=== PATIENT | female | born 1945 | race Caucasian/White ===

== ENCOUNTER 2018-04-22 14:49 | Emergency (ER) | payer MEDICARE ==
[~2018-04-22] VITALS: Ht 578.2 cm; Wt 79.5 kg
[~2018-04-22 14:49] MED LIST: DIPH25CA83 PO
[2018-04-22 15:34] LABS: INR 0.9 INR; PARTIAL THROMBOPLASTIN TIME 25 SECONDS (22-32); PROTHROMBIN TIME 9.7 SECONDS (9.0-12.0)
[2018-04-22 15:42] LABS: ALANINE AMINOTRANSFERASE 23 U/L (12-78); ALBUMIN 3.3 G/DL (3.4-5.0); ALBUMIN/GLOBULIN RATIO 1.1 (1.1-1.5); ALKALINE PHOSPHATASE 162 IU/L (46-116); ANION GAP 9 (8-16); ASPARTATE AMINO TRANSFERASE 25 U/L (10-37); BILIRUBIN,TOTAL 0.5 MG/DL (0.1-1.0); BLOOD UREA NITROGEN 16 MG/DL (7-18); BUN/CREATININE RATIO 15.4 (6.6-38.0); CALCIUM 8.9 MG/DL (8.5-10.1); CHLORIDE 106 MMOL/L (99-107); CREATININE 1.04 MG/DL (0.40-0.90); GLUCOSE 114 MG/DL (70-104); POTASSIUM 3.9 MMOL/L (3.5-5.1); SODIUM 140 MMOL/L (135-145); TOTAL CARBON DIOXIDE 24.7 MMOL/L (24-32); TOTAL PROTEIN 6.3 G/DL (6.4-8.2); eGFR 52 ML/MIN
[2018-04-22 15:43] LABS: BASOPHILS % (AUTO) 0.2 % (0-1); EOSINOPHILS # (AUTO) 1.1 X10'3 (0-0.9); EOSINOPHILS % (AUTO) 11.5 % (0-6); HEMATOCRIT 42.1 % (35.0-45.0); HEMOGLOBIN 14.4 g/dl (12.0-16.0); LYMPHOCYTES # (AUTO) 0.8 X10'3 (1.1-4.8); LYMPHOCYTES % (AUTO) 8.6 % (21-51); MEAN CORPUSCULAR HEMOGLOBIN 29.8 PG (27.0-31.0); MEAN CORPUSCULAR HGB CONC 34.1 % (33.0-36.5); MEAN CORPUSCULAR VOLUME 87.4 FL (78-98); MEAN PLATELET VOLUME 9.1 FL (7.4-10.4); MONOCYTES # (AUTO) 0.4 X10'3 (0-0.9); MONOCYTES % (AUTO) 4.5 % (2-12); NEUTROPHILS # (AUTO) 7.2 X10'3 (1.8-7.7); NEUTROPHILS % (AUTO) 75.2 % (42-75); PLATELET COUNT 197 X10'3 (140-440); RED BLOOD COUNT 4.82 X10'6 (4.20-5.60); RED CELL DISTRIBUTION WIDTH 14.5 % (11.5-14.5); WHITE BLOOD COUNT 9.6 X10'3 (4.5-11.0)
[2018-04-22] MEDS ORDERED: normal saline 1000ML IV soln IVB ONE (16:00)
[2018-04-22] MEDS ORDERED: ketorolac trometh. 30mg/ml inj. IV ONE (16:00)
[2018-04-22 17:08] VITALS: BP 149/76
== END 2018-04-22 17:10 | disposition home or self-care (01) ==
LOC: ER 14:50
DX: G44.209 Tension-type headache, unspecified, not intractable (principal); E86.0 Dehydration; I49.9 Cardiac arrhythmia, unspecified; I10 Essential (primary) hypertension; J45.909 Unspecified asthma, uncomplicated; Z98.890 Other specified postprocedural states; Z98.61 Coronary angioplasty status; Z88.8 Allergy status to other drugs, medicaments and biological substances; Z88.5 Allergy status to narcotic agent; Z79.899 Other long term (current) drug therapy
CPT/HCPCS: 36415; 71045; 80053; 84484; 85025; 85610; 85730; 93005; 96361; 96374; 99285; J1885; J7030

== ENCOUNTER 2019-01-14 06:11 | Inpatient (IN) | payer MEDICARE | END 2019-01-16 11:15 | disposition home or self-care (01) | LOC: PAS IN 06:11 → ORTHO 4S 13:38 | PROC: 0SRC0J9 Replacement of Right Knee Joint with Synthetic Substitute, Cemented, Open Approach (ICD-10-PCS; principal; 2019-01-14 09:12) | DX: M17.11 Unilateral primary osteoarthritis, right knee (principal); I10 Essential (primary) hypertension ==

== ENCOUNTER 2020-08-13 01:25 | Emergency (ER) | payer MEDICARE ==
[~2020-08-13] VITALS: Ht 165.1 cm; Wt 80.0 kg
[~2020-08-13 01:25] MED LIST changes: +ASPI-1 PO; +ATOR10TA87 PO; +CA C1TAB93 PO; +CALC60CR5 TP; +CLOB15CR4 TOP; -DIPH25CA83 PO; +KEN0.1O TP; +LEVA15HF4 INH; +MAGN400C PO; +MONT10TA21 PO; +VIT1CAPS46
[2020-08-13] MEDS ORDERED: aspirin 81mg tab.chew PO ONE (01:35)
[2020-08-13] MEDS ORDERED: ondansetron/PF 4mg/2ml inj IV ONE (01:50)
[2020-08-13] MEDS: nitroGLYCERIN 0.4mg SUBLingual tab SL PRN ×3 (01:50→02:23)
--- NOTE | 2020-08-13 02:02 | NUR ---
Pt. had emesis x1. VO 4mg IV morphine now.
[2020-08-13 02:17] LABS: BASOPHILS # (AUTO) 0.1 X10'3 (0-0.2); BASOPHILS % (AUTO) 0.7 % (0-1); EOSINOPHILS # (AUTO) 0.7 X10'3 (0-0.9); EOSINOPHILS % (AUTO) 6.6 % (0-6); HEMATOCRIT 42.5 % (35.0-45.0); LYMPHOCYTES % (AUTO) 17.7 % (21-51); MEAN CORPUSCULAR HEMOGLOBIN 29.1 PG (27.0-31.0); MEAN CORPUSCULAR HGB CONC 32.9 g/dL (33.0-36.5); MEAN CORPUSCULAR VOLUME 88.4 FL (78-98); MEAN PLATELET VOLUME 8.7 FL (7.4-10.4); MONOCYTES # (AUTO) 0.9 X10'3 (0-0.9); MONOCYTES % (AUTO) 8.2 % (2-12); NEUTROPHILS # (AUTO) 7.4 X10'3 (1.8-7.7); NEUTROPHILS % (AUTO) 66.8 % (42-75); PLATELET COUNT 199 X10'3 (140-440); RED BLOOD COUNT 4.81 X10'6 (4.20-5.60)
[2020-08-13 03:00] LABS: ALANINE AMINOTRANSFERASE 40 U/L (12-78); ALBUMIN 3.4 G/DL (3.4-5.0); ALBUMIN/GLOBULIN RATIO 1.2 (1.1-1.5); ALKALINE PHOSPHATASE 142 IU/L (46-116); ANION GAP 4 (8-16); ASPARTATE AMINO TRANSFERASE 26 U/L (10-37); BILIRUBIN,TOTAL 0.5 MG/DL (0.1-1.0); BLOOD UREA NITROGEN 17 MG/DL (7-18); CALCIUM 8.5 MG/DL (8.5-10.1); CHLORIDE 106 MMOL/L (99-107); CREATININE 1.21 MG/DL (0.40-0.90); GLUCOSE 133 MG/DL (70-104); POTASSIUM 4.1 MMOL/L (3.5-5.1); SODIUM 139 MMOL/L (135-145); TOTAL CARBON DIOXIDE 29.2 MMOL/L (24-32); TOTAL PROTEIN 6.2 G/DL (6.4-8.2); eGFR 44 ML/MIN
[2020-08-13 03:06] LABS: LIPASE 183 U/L (73-393)
[2020-08-13 04:39] VITALS: BP 140/83
== END 2020-08-13 04:58 | disposition home or self-care (01) ==
LOC: ER 01:25
DX: R07.89 Other chest pain (principal); R06.02 Shortness of breath; E78.00 Pure hypercholesterolemia, unspecified; I10 Essential (primary) hypertension; J45.909 Unspecified asthma, uncomplicated; Z95.0 Presence of cardiac pacemaker; Z98.890 Other specified postprocedural states; Z88.2 Allergy status to sulfonamides; Z88.5 Allergy status to narcotic agent; Z88.8 Allergy status to other drugs, medicaments and biological substances; Z79.82 Long term (current) use of aspirin; Z79.899 Other long term (current) drug therapy
CPT/HCPCS: 36415; 71045; 80053; 83690; 83880; 84484; 85025; 93005; 96374; 99285; J2405

== ENCOUNTER 2020-08-15 06:40 | Inpatient (IN) | payer MEDICARE ==
[~2020-08-15] VITALS: Ht 165.1 cm; Wt 82.1 kg
[2020-08-15] MEDS ORDERED: aspirin 81mg tab.chew PO ONE (07:00)
[2020-08-15 07:37] LABS: BASOPHILS # (AUTO) 0.1 X10'3 (0-0.2); BASOPHILS % (AUTO) 1.3 % (0-1); EOSINOPHILS # (AUTO) 0.4 X10'3 (0-0.9); EOSINOPHILS % (AUTO) 5.6 % (0-6); HEMATOCRIT 46.2 % (35.0-45.0); HEMOGLOBIN 15.5 g/dl (12.0-16.0); LYMPHOCYTES # (AUTO) 1.9 X10'3 (1.1-4.8); LYMPHOCYTES % (AUTO) 26.6 % (21-51); MEAN CORPUSCULAR HEMOGLOBIN 29.8 PG (27.0-31.0); MEAN CORPUSCULAR HGB CONC 33.6 g/dL (33.0-36.5); MEAN CORPUSCULAR VOLUME 88.6 FL (78-98); MONOCYTES # (AUTO) 0.9 X10'3 (0-0.9); MONOCYTES % (AUTO) 12.5 % (2-12); NEUTROPHILS # (AUTO) 3.9 X10'3 (1.8-7.7); PLATELET COUNT 198 X10'3 (140-440); RED BLOOD COUNT 5.21 X10'6 (4.20-5.60); RED CELL DISTRIBUTION WIDTH 14.2 % (11.5-14.5); WHITE BLOOD COUNT 7.1 X10'3 (4.5-11.0)
[2020-08-15 07:52] LABS: D-DIMER 0.54 MG/L FEU (0-0.50)
[2020-08-15 08:07] LABS: ALBUMIN 3.3 G/DL (3.4-5.0); ANION GAP 6 (8-16); BLOOD UREA NITROGEN 11 MG/DL (7-18); BUN/CREATININE RATIO 9.8 (6.6-38.0); CALCIUM 8.9 MG/DL (8.5-10.1); CHLORIDE 102 MMOL/L (99-107); CREATININE 1.12 MG/DL (0.40-0.90); GLUCOSE 119 MG/DL (70-104); MAGNESIUM 2.2 MG/DL (1.5-2.4); SODIUM 136 MMOL/L (135-145); TOTAL CARBON DIOXIDE 27.6 MMOL/L (24-32); eGFR 48 ML/MIN
[2020-08-15] MEDS ORDERED: acetaminophen 325mg tablet PO PRN ×2 (08:35)
[2020-08-15] MEDS ORDERED: ondansetron/PF 4mg/2ml inj IV PRN (08:35)
[2020-08-15] MEDS ORDERED: magnesium hydroxide 30ml (MOM) UD suspension PO PRN (08:35)
[2020-08-15] MEDS ORDERED: morphine 2 MG/ML inj. syringe IV PRN ×2 (08:35)
[2020-08-15] MEDS ORDERED: mag hydrox/Alum hydrox/simeth 30ml oral suspension PO PRN (08:35)
--- NOTE | 2020-08-15 10:09 | NUR ---
Patient checked and is resting comfortably, denies pain or SOB. Patient reports a "fluttering in chest".
[2020-08-15] MEDS ORDERED: albuterol 2.5 MG/3 ML nebule NEB PRN (13:00)
[2020-08-15] MEDS ORDERED: enoxaparin 100mg/ml syringe SUBCUT ONE (14:45)
--- NOTE | 2020-08-15 14:52 | NUR ---
Patient is resting comfortably in bed with no requests at this time.
[2020-08-15] MEDS: diltiazem 30mg tablet PO SCH ×2 (15:27→20:03)
--- NOTE | 2020-08-15 16:00 | NUR ---
Report received from Douglas RN in ER. Pt brought to room 315. Pt was is ambulatory and walked to bed from ER [facility]. She is A&O x4. Assessment completed, lungs are CTA, BS x4 abd soft to to touch non tender. HR 85 in A Fib. No edema noted. Pt denies any pain. This nurse agrees with assessment by DIRECTOR OF CRITICAL CARE as well. Pt denies any needs at this time.
[2020-08-15 18:00] VITALS: BP 131/66
--- NOTE | 2020-08-15 18:00 | NUR ---
Patient in room MED 315. I have received report from ANDREW MILLER and had the opportunity to ask questions and assume patient care.
--- NOTE | 2020-08-15 18:29 | NUR ---
Problems reprioritized. Patient report given, questions answered & plan of care reviewed with Ana MILLER. Addendum: 08/15/20 at 1830 by Madai Epstein RN Report given to Payal MILLER
[2020-08-15] MEDS ORDERED: montelukast 10mg tablet PO SCH (21:00)
[2020-08-15] MEDS ORDERED: atorvastatin 10mg tablet PO SCH (21:00)
[2020-08-15] MEDS ORDERED: magnesium oxide 400mg tablet PO SCH (21:00)
[2020-08-15 22:00] VITALS: BP 140/85
[2020-08-16 02:00] VITALS: BP 134/74
[2020-08-16] MEDS: diltiazem 30mg tablet PO SCH ×2 (02:11→09:38)
[2020-08-16 04:58] LABS: BASOPHILS # (AUTO) 0.1 X10'3 (0-0.2); BASOPHILS % (AUTO) 1.3 % (0-1); EOSINOPHILS # (AUTO) 0.5 X10'3 (0-0.9); EOSINOPHILS % (AUTO) 9.1 % (0-6); HEMATOCRIT 44.7 % (35.0-45.0); HEMOGLOBIN 14.9 g/dl (12.0-16.0); LYMPHOCYTES # (AUTO) 1.9 X10'3 (1.1-4.8); LYMPHOCYTES % (AUTO) 32.5 % (21-51); MEAN CORPUSCULAR HEMOGLOBIN 29.5 PG (27.0-31.0); MEAN CORPUSCULAR HGB CONC 33.3 g/dL (33.0-36.5); MEAN CORPUSCULAR VOLUME 88.5 FL (78-98); MEAN PLATELET VOLUME 8.7 FL (7.4-10.4); MONOCYTES # (AUTO) 0.6 X10'3 (0-0.9); MONOCYTES % (AUTO) 10.7 % (2-12); NEUTROPHILS # (AUTO) 2.8 X10'3 (1.8-7.7); NEUTROPHILS % (AUTO) 46.4 % (42-75); PLATELET COUNT 271 X10'3 (140-440); RED BLOOD COUNT 5.05 X10'6 (4.20-5.60); RED CELL DISTRIBUTION WIDTH 14.1 % (11.5-14.5); WHITE BLOOD COUNT 5.9 X10'3 (4.5-11.0)
[2020-08-16 05:18] LABS: ANION GAP 7 (8-16); BLOOD UREA NITROGEN 20 MG/DL (7-18); BUN/CREATININE RATIO 14.8 (6.6-38.0); CHLORIDE 104 MMOL/L (99-107); CREATININE 1.35 MG/DL (0.40-0.90); GLUCOSE 119 MG/DL (70-104); POTASSIUM 4.3 MMOL/L (3.5-5.1); SODIUM 141 MMOL/L (135-145); eGFR 38 ML/MIN
[2020-08-16 06:00] VITALS: BP 127/71
--- NOTE | 2020-08-16 06:08 | NUR ---
Problems reprioritized. Patient report given, questions answered & plan of care reviewed with ANDREW MILLER.
[2020-08-16] MEDS ORDERED: WARF3TAB56 PO (08:49)
[2020-08-16] MEDS ORDERED: DILT120C52 PO (08:49)
[2020-08-16] MEDS ORDERED: FURO-150 PO (08:49)
[2020-08-16 09:50] VITALS: BP 129/66
--- NOTE | 2020-08-16 10:21 | NUR ---
Discharge orders received. IV discontinued and had no s/s complications. PT VS have remained stable. She denies any chest pain or palpitations this morning. Discharge instructions given and pt stated understanding. Medications sent to pharmacy by MD Shikha anne. All belongings accounted for. Pt taken via wheelchair to private vehicle.
== END 2020-08-16 10:21 | disposition home or self-care (01) | DRG 310 ==
LOC: ER 06:40 → ED HOLD 08:35 → MED 3N 15:56
PROVIDERS: ADMIT Internal Medicine; ATTEND Internal Medicine
DX: I48.91 Unspecified atrial fibrillation (principal); E78.5 Hyperlipidemia, unspecified; I49.5 Sick sinus syndrome; E78.00 Pure hypercholesterolemia, unspecified; N18.30 Chronic kidney disease, stage 3 unspecified; Z96.659 Presence of unspecified artificial knee joint; J44.9 Chronic obstructive pulmonary disease, unspecified; Z90.710 Acquired absence of both cervix and uterus; Z95.0 Presence of cardiac pacemaker; Z82.49 Family history of ischemic heart disease and other diseases of the circulatory system; Z91.012 Allergy to eggs; Z88.2 Allergy status to sulfonamides; Z88.8 Allergy status to other drugs, medicaments and biological substances; Z91.018 Allergy to other foods; Z79.899 Other long term (current) drug therapy
CPT/HCPCS: 36415; 71046; 80048; 83735; 83880; 84443; 84484; 85025; 85379; 87081; 93005; 93306; 93308; 94760; 99285; G0378; J1650

== ENCOUNTER 2021-11-03 05:58 | Day surgery (SDC) | payer MEDICARE ==
[2021-11-02 11:30] LABS: BASOPHILS # (AUTO) 0.1 X10'3 (0-0.2); EOSINOPHILS # (AUTO) 0.9 X10'3 (0-0.9); HEMATOCRIT 40.7 % (35.0-45.0); HEMOGLOBIN 13.5 g/dl (12.0-16.0); LYMPHOCYTES # (AUTO) 1.8 X10'3 (1.1-4.8); MEAN CORPUSCULAR HEMOGLOBIN 27.3 PG (27.0-31.0); MEAN CORPUSCULAR HGB CONC 33.3 g/dL (33.0-36.5); MEAN CORPUSCULAR VOLUME 82.2 FL (78-98); MONOCYTES # (AUTO) 0.7 X10'3 (0-0.9); NEUTROPHILS # (AUTO) 4.1 X10'3 (1.8-7.7); PLATELET COUNT 205 X10'3 (140-440); RED BLOOD COUNT 4.95 X10'6 (4.20-5.60); RED CELL DISTRIBUTION WIDTH 17.9 % (11.5-14.5); WHITE BLOOD COUNT 7.5 X10'3 (4.5-11.0)
[2021-11-02 11:45] LABS: ALBUMIN 3.4 G/DL (3.4-5.0); ANION GAP 7 (8-16); APTT 27 SECONDS (22-32); BLOOD UREA NITROGEN 18 MG/DL (7-18); BUN/CREATININE RATIO 17.6 (6.6-38.0); CALCIUM 8.7 MG/DL (8.5-10.1); CHLORIDE 102 MMOL/L (99-107); CREATININE 1.02 MG/DL (0.40-0.90); GLUCOSE 88 MG/DL (70-104); SODIUM 138 MMOL/L (135-145); TOTAL CARBON DIOXIDE 29.3 MMOL/L (24-32); eGFR 53 ML/MIN
[2021-11-03] VITALS (10 sets, daily range): BP systolic 141–158; BP diastolic 62–75
[~2021-11-03] VITALS: Ht 165.1 cm; Wt 80.1 kg
[~2021-11-03 05:58] MED LIST changes: -ASPI-1 PO; -CA C1TAB93 PO; -CALC60CR5 TP; -CLOB15CR4 TOP; +DILT120C52 PO; +FURO-150 PO; -KEN0.1O TP; -VIT1CAPS46; +WARF3TAB56 PO
[2021-11-03] MEDS ORDERED: normal saline 1,000 ML IV SCH (06:15)
[2021-11-03] MEDS ORDERED: LIDOcaine/PRILOcaine 5gm cream TP ONE (06:15)
[2021-11-03] MEDS ORDERED: LORazepam 0.5 MG tablet PO ONE (06:35)
[2021-11-03] MEDS ORDERED: diphenhydrAMINE 25mg capsule PO ONE (06:35)
[2021-11-03] MEDS ORDERED: UBID100C16 PO (07:07)
[2021-11-03] MEDS ORDERED: WARF3TAB56 PO (07:07)
[2021-11-03] MEDS ORDERED: CALC60OI4 TOP (07:07)
[2021-11-03] MEDS ORDERED: CALC-825 PO (07:07)
[2021-11-03] MEDS ORDERED: vitamin d3 PO (07:07)
[2021-11-03] MEDS ORDERED: VIT1CAPS46 PO (07:07)
[2021-11-03] MEDS ORDERED: CLOB15CR4 TOP (07:07)
[2021-11-03] MEDS ORDERED: DILT-35 PO (07:07)
[2021-11-03] MEDS ORDERED: TRIA15CR61 TOP (07:07)
[2021-11-03] MEDS ORDERED: nitroGLYCERIN-Tridil 50MG/D5W 250 ML IV ONE (07:21)
[2021-11-03] MEDS ORDERED: midazolam 1 mg/ML 2ml injection ONE (07:22)
[2021-11-03] MEDS ORDERED: heparin 1,000unit/ml 10ml vial 10 ML ONE (07:22)
[2021-11-03] MEDS ORDERED: verapamil 2.5 mg/ml inj IV ONE (07:22)
[2021-11-03] MEDS ORDERED: fentaNYL/PF 50MCG/1 ML 2ML syringe ONE (07:22)
[2021-11-03] MEDS ORDERED: LIDOcaine 1% (10mg/ml)w/preservative injection 20ml MDV ONE (07:22)
[2021-11-03] MEDS ORDERED: iohexol 350 MG/ML 50ML vial IV ONE (07:23)
[2021-11-03] MEDS ORDERED: iohexol 350MG/ML 100ml bottle IV ONE (07:23)
[2021-11-03] MEDS ORDERED: normal saline 1000ml 1,000 ML IV SCH (09:45)
[2021-11-07 06:37] LABS: ISTAT Hct MIX 43 %PCV (35-48); ISTAT O2 SATURATION MIX VENOUS 69 % (60-80); ISTAT SOURCE BLNK
[2021-11-07 06:38] LABS: ISTAT Hct MIX 42 %PCV (35-48); ISTAT O2 SATURATION MIX VENOUS 92 % (60-80); ISTAT SOURCE BLNK
== END 2021-11-03 14:00 | disposition home or self-care (01) ==
LOC: SSTAY O 05:58
PROVIDERS: ATTEND Internal Medicine Cardiovascular Disease
DX: R06.02 Shortness of breath (principal); R53.83 Other fatigue; I25.119 Atherosclerotic heart disease of native coronary artery with unspecified angina pectoris; I48.0 Paroxysmal atrial fibrillation; I10 Essential (primary) hypertension; J45.909 Unspecified asthma, uncomplicated; M85.80 Other specified disorders of bone density and structure, unspecified site; E78.5 Hyperlipidemia, unspecified; I34.1 Nonrheumatic mitral (valve) prolapse; Z87.440 Personal history of urinary (tract) infections; Z87.01 Personal history of pneumonia (recurrent); Z79.01 Long term (current) use of anticoagulants; Z96.651 Presence of right artificial knee joint; Z98.41 Cataract extraction status, right eye; Z98.42 Cataract extraction status, left eye; Z98.890 Other specified postprocedural states; Z95.0 Presence of cardiac pacemaker; Z88.2 Allergy status to sulfonamides; Z88.1 Allergy status to other antibiotic agents; Z88.0 Allergy status to penicillin; Z88.5 Allergy status to narcotic agent; Z88.8 Allergy status to other drugs, medicaments and biological substances; Z83.6 Family history of other diseases of the respiratory system; Z82.49 Family history of ischemic heart disease and other diseases of the circulatory system
CPT/HCPCS: 36415; 76937; 80048; 82803; 85014; 85025; 85610; 85730; 93005; 93460; 99152; 99153; C1751; C1769; C1894; J1644; J2250; J3010; J3490; J7030; Q0163; Q9967; A4620; A5120; A6258

== ENCOUNTER 2022-09-22 10:44 | Emergency (ER) | payer MEDICARE ==
[~2022-09-22] VITALS: Ht 165.1 cm; Wt 85.0 kg
[~2022-09-22 10:44] MED LIST changes: +CALC-825 PO; +CALC60OI4 TOP; +CLOB15CR4 TOP; +DILT-35 PO; -DILT120C52 PO; -FURO-150 PO; +TRIA15CR61 TOP; +UBID100C16 PO; +VIT1CAPS46 PO; +vitamin d3 PO
[2022-09-22 12:57] LABS: BASOPHILS # (AUTO) 0.1 X10'3 (0-0.2); BASOPHILS % (AUTO) 0.7 % (0-1); EOSINOPHILS # (AUTO) 0.4 X10'3 (0-0.9); EOSINOPHILS % (AUTO) 3.5 % (0-6); HEMATOCRIT 44.8 % (35.0-45.0); LYMPHOCYTES # (AUTO) 1.7 X10'3 (1.1-4.8); LYMPHOCYTES % (AUTO) 16.2 % (21-51); MEAN CORPUSCULAR HEMOGLOBIN 29.1 PG (27.0-31.0); MEAN CORPUSCULAR HGB CONC 33.5 g/dL (33.0-36.5); MEAN PLATELET VOLUME 9.1 FL (7.4-10.4); MONOCYTES # (AUTO) 1.4 X10'3 (0-0.9); MONOCYTES % (AUTO) 12.9 % (2-12); NEUTROPHILS # (AUTO) 7.2 X10'3 (1.8-7.7); NEUTROPHILS % (AUTO) 66.7 % (42-75); PLATELET COUNT 205 X10'3 (140-440); RED BLOOD COUNT 5.15 X10'6 (4.20-5.60); RED CELL DISTRIBUTION WIDTH 15.1 % (11.5-14.5); WHITE BLOOD COUNT 10.8 X10'3 (4.5-11.0)
[2022-09-22 13:00] LABS: ALANINE AMINOTRANSFERASE 27 U/L (12-78); ALBUMIN 3.2 G/DL (3.4-5.0); ALKALINE PHOSPHATASE 132 IU/L (46-116); ANION GAP 10 (8-16); ASPARTATE AMINO TRANSFERASE 18 U/L (10-37); BLOOD UREA NITROGEN 19 MG/DL (7-18); BUN/CREATININE RATIO 18.8 (6.6-38.0); CALCIUM 8.8 MG/DL (8.5-10.1); CHLORIDE 102 MMOL/L (99-107); CREATININE 1.01 MG/DL (0.40-0.90); GLUCOSE 110 MG/DL (70-104); POTASSIUM 3.8 MMOL/L (3.5-5.1); SODIUM 137 MMOL/L (135-145); TOTAL CARBON DIOXIDE 24.8 MMOL/L (24-32); TOTAL PROTEIN 6.5 G/DL (6.4-8.2); eGFR 53 ML/MIN
[2022-09-22 19:59] LABS: D-DIMER < 0.19 MG/L FEU (0-0.50)
--- NOTE | 2022-09-22 21:21 | NUR ---
Ste[employer]er agrees with Venice Koch, CRESENCIO assessment.
[2022-09-22 21:27] VITALS: BP 131/98
== END 2022-09-22 21:30 | disposition home or self-care (01) ==
LOC: ER 10:44
DX: R07.9 Chest pain, unspecified (principal); E78.00 Pure hypercholesterolemia, unspecified; I10 Essential (primary) hypertension; J45.909 Unspecified asthma, uncomplicated; Z00.8 Encounter for other general examination; Z88.8 Allergy status to other drugs, medicaments and biological substances; Z79.1 Long term (current) use of non-steroidal anti-inflammatories (NSAID); Z88.2 Allergy status to sulfonamides
CPT/HCPCS: 36415; 71045; 80053; 83880; 84484; 85025; 85379; 93005; 99285; J7030

== ENCOUNTER 2023-10-22 16:52 | Emergency (ER) | payer MEDICARE ==
[~2023-10-22] VITALS: Ht 166.4 cm; Wt 80.3 kg
[~2023-10-22 16:52] MED LIST changes: +ASPI81TA52 PO; -CALC-825 PO; +CALC500T63 PO; +COL0.6T PO; +INDO-12 PO; -LEVA15HF4 INH; +MONT-47 PO; -MONT10TA21 PO; -UBID100C16 PO
[2023-10-22 16:58] VITALS: BP 131/64; PULSE 68; RESP 22; TEMP 98.5; O2SAT 97
[2023-10-22 17:50] LABS: EOSINOPHILS % (AUTO) 0.1 % (0-6); HEMATOCRIT 47.5 % (35.0-45.0); HEMOGLOBIN 15.7 g/dl (12.0-16.0); LYMPHOCYTES # (AUTO) 1.4 X10'3 (1.1-4.8); LYMPHOCYTES % (AUTO) 37.8 % (21-51); MEAN CORPUSCULAR HEMOGLOBIN 29.3 PG (27.0-31.0); MEAN CORPUSCULAR HGB CONC 33.1 g/dL (33.0-36.5); MEAN CORPUSCULAR VOLUME 88.5 FL (78-98); MEAN PLATELET VOLUME 8.8 FL (7.4-10.4); MONOCYTES # (AUTO) 0.6 X10'3 (0-0.9); MONOCYTES % (AUTO) 17.8 % (2-12); NEUTROPHILS # (AUTO) 1.6 X10'3 (1.8-7.7); NEUTROPHILS % (AUTO) 43.3 % (42-75); PLATELET COUNT 173 X10'3 (140-440); RED BLOOD COUNT 5.37 X10'6 (4.20-5.60); RED CELL DISTRIBUTION WIDTH 14.5 % (11.5-14.5); WHITE BLOOD COUNT 3.6 X10'3 (4.5-11.0)
[2023-10-22 18:05] LABS: ALANINE AMINOTRANSFERASE 33 U/L (12-78); ALBUMIN 3.4 G/DL (3.4-5.0); ALKALINE PHOSPHATASE 136 IU/L (46-116); ANION GAP 7 (8-16); ASPARTATE AMINO TRANSFERASE 36 U/L (10-37); BILIRUBIN,TOTAL 0.6 MG/DL (0.1-1.0); BLOOD UREA NITROGEN 14 MG/DL (7-18); BUN/CREATININE RATIO 12.2 (10.0-20.0); CALCIUM 8.5 MG/DL (8.5-10.1); CHLORIDE 100 MMOL/L (99-107); CREATININE 1.15 MG/DL (0.40-0.90); GLUCOSE 107 MG/DL (70-104); SODIUM 135 MMOL/L (135-145); TOTAL CARBON DIOXIDE 28.2 MMOL/L (24-32); TOTAL PROTEIN 6.9 G/DL (6.4-8.2); eCRCL 38 ML/MIN; eGFR 46 ML/MIN
[2023-10-22 18:26] LABS: TOTAL CELLS COUNTED 100
[2023-10-22 18:30] LABS: PLATELET ESTIMATE NORMAL
== END 2023-10-22 20:48 | disposition left against medical advice (07) ==
LOC: ER 16:53
DX: R51.9 Headache, unspecified (principal); H92.02 Otalgia, left ear; Z53.21 Procedure and treatment not carried out due to patient leaving prior to being seen by health care provider
CPT/HCPCS: 36415; 71045; 80053; 85007; 85025; 99281